=== PATIENT | female | born 1975 | race Two or more races ===

== ENCOUNTER 2025-04-13 18:30 | Emergency (ER) | payer MEDICARE, OTHER ==
[~2025-04-13] VITALS: Ht 167.6 cm; Wt 98.9 kg
[~2025-04-13 18:30] MED LIST: CLON0.5T PO; DULO60CA45 PO; OMEP20CA4 PO; RISP4TAB4 PO; SUMA50TA PO; TEMA30CA5 PO; TRAZ-257 PO
[2025-04-13 20:11] LABS: PREGNANCY TEST URINE QUAL NEGATIVE (NEGATIVE)
[2025-04-13] MEDS ORDERED: ACETAMINOPHEN ES 500 MG TABLET ONE (20:35)
[2025-04-13] MEDS: ACETAMINOPHEN ES 500 MG TABLET PO ONE (20:44)
[2025-04-13] MEDS ORDERED: ACET-2030 PO (21:38)
[2025-04-13] MEDS ORDERED: MIDAZOLAM HCL 5 MG/5ML VIAL ONE (22:54)
[2025-04-13] MEDS: MIDAZOLAM HCL 2 MG/2ML VIAL IM ONE (22:57)
[2025-04-14] MEDS ORDERED: PHENYTOIN SUSP UDC 100 MG/4 ML UDC ONE (00:04)
[2025-04-14] MEDS: PHENYTOIN EXTENDED RELEASE 100 MG CAPSULE PO ONE ×2 (00:36→00:37)
[2025-04-14 00:59] VITALS: BP 130/75; TEMP 97.9; O2SAT 98
== END 2025-04-14 01:23 | disposition home or self-care (01) ==
LOC: ER 18:51
DX: S09.90XA Unspecified injury of head, initial encounter (principal); J45.909 Unspecified asthma, uncomplicated; I10 Essential (primary) hypertension; Z79.899 Other long term (current) drug therapy; W22.01XA Walked into wall, initial encounter; Y93.89 Activity, other specified; Y92.89 Other specified places as the place of occurrence of the external cause; Y99.8 Other external cause status
CPT/HCPCS: 99285; 70450; 96372; 80185; 84703; 36415; J2250